=== PATIENT | male | born 1970 | race African-American/Black ===

== ENCOUNTER 2021-02-23 14:06 | Emergency (ER) | payer MEDICAID, OTHER ==
[~2021-02-23] VITALS: Ht 182.9 cm; Wt 136.0 kg
[~2021-02-23 14:06] MED LIST: ALBUTEROL; SINGULAR
[2021-02-23] MEDS ORDERED: IPRATROPIUM BROMIDE (0.02%) 0.5MG/2.5ML NEB HHN STA (14:27)
[2021-02-23] MEDS ORDERED: ALBUTEROL (0.083%) 2.5MG/3ML NEB HHN STA (14:27)
[2021-02-23 15:24] LABS: BASOPHILS % 0.8 % (0.0-2.0); EOSINOPHILS % 7.5 % (0.0-5.0); HEMATOCRIT. 39.6 % (42.0-52.0); LYMPHOCYTES % 20.2 % (20.0-50.0); MEAN CORPUSCULAR HEMOGLOBIN 26.2 pg (28.0-32.0); MEAN CORPUSCULAR VOLUME 79.7 fL (80.0-94.0); MEAN PLATELET VOLUME 7.7 fl (7.4-10.4); MONOCYTES % 12.6 % (2.0-8.0); NEUTROPHILS % 58.9 % (40.0-76.0); PLATELET 245 x1000/uL (130-400); RED BLOOD CELL COUNT 4.97 mill/uL (4.7-6.1); RED CELL DISTRIBUTION WIDTH 16.6 % (11.6-14.6)
[2021-02-23 15:29] LABS: CHLORIDE 102 mEq/L (98-107)
[2021-02-23] MEDS ORDERED: ALBU6.7H9 INH (15:34)
[2021-02-23 16:43] VITALS: BP 155/84
== END 2021-02-23 16:44 | disposition home or self-care (01) ==
LOC: ER 14:40
DX: J06.9 Acute upper respiratory infection, unspecified (principal); J45.909 Unspecified asthma, uncomplicated; I10 Essential (primary) hypertension; Z79.899 Other long term (current) drug therapy
CPT/HCPCS: 36415; 71045; 80053; 83880; 84484; 85025; 93005; 94640; 99285; Z7610

== ENCOUNTER 2023-07-10 22:06 | Emergency (ER) | payer OTHER ==
[~2023-07-10] VITALS: Ht 180.3 cm; Wt 141.0 kg
[~2023-07-10 22:06] MED LIST changes: +ALBU18HF2 IH; +ALBU6.7H3 INH; -ALBUTEROL; +ASPI-1406 MT; +ATOR20TA PO; +CARV3.1242 MT; +FURO-151 MT; +LOSA50TA41 MT; -SINGULAR
[2023-07-10 22:18] VITALS: BP 192/99; PULSE 68; RESP 20; TEMP 98.7; O2SAT 95
[2023-07-10] MEDS ORDERED: HYDROCODONE/ACETAMINOPHEN 5/325MG TABLET PO ONE (23:00)
[2023-07-11] MEDS ORDERED: KETOROLAC 60MG/2ML VIAL IM ONE (00:15)
[2023-07-11] MEDS ORDERED: HYDROCODONE/ACETAMINOPHEN 5/325MG TABLET PO NR (01:00)
== END 2023-07-11 02:21 | disposition home or self-care (01) ==
LOC: ER 22:09
DX: M25.512 Pain in left shoulder (principal); J45.909 Unspecified asthma, uncomplicated; I10 Essential (primary) hypertension; Z98.890 Other specified postprocedural states
CPT/HCPCS: 99283; 73030; J1885